=== PATIENT | male | born 1995 | race African-American/Black ===

== ENCOUNTER 2019-08-24 17:19 | Emergency (ER) | payer OTHER ==
[2019-08-24] MEDS ORDERED: HYDROmorphone 1 MG/ML CARPUJECT IVP STA (17:59)
--- NOTE | 2019-08-24 18:02 | ED Physician Documentation ---
History of Present Illness - Stated complaint Stated Complaint: BILAT ARM PAIN - Chief complaint Chief Complaint: Ext Problem - History obtained from History obtained from: Patient - History of Present Illness Timing: Prior to arrival, How many days ago (1) Pain level max: 10 Pain level now: 6 - Additonal information Additional information: 23-year-old male presents to the emergency department with chief complaint of left arm pain and bilateral arm pain. Patient reports that he was doing shoulder presses yesterday afternoon when he felt a pop in his left shoulder. He did not think much of it though it was painful. This morning he woke up and his left shoulder hurt and he has been unable to move his arms normally. His arms are held in flexion at the elbows bilaterally. He has taken nothing for pain. Has no history of previous injury. Review of Systems Constitutional: reports: Myalgias. denies: Fever, Chills, Weight Loss Nose: denies: Rhinorrhea / runny nose, Foreign Body Throat: denies: Dental pain / toothache, Oral lesions / sores Cardiac: denies: Chest pain / pressure, Palpitations Respiratory: denies: Dyspnea, Cough GI: denies: Abdominal Pain : denies: Dysuria Skin: denies: Rash, Lesions Musculoskeletal: reports: Extremity pain. denies: Joint swelling PD PAST MEDICAL HISTORY - Past Medical History Past Medical History: No - Past Surgical History Past Surgical History: No - Present Medications Home Medications: Ambulatory Orders Medication Instructions Recorded Confirmed Cyclobenzaprine [Flexeril] 10 mg PO BID #10 tablet 08/24/19 Ibuprofen [Motrin] 600 mg PO Q6H PRN #20 tab 08/24/19 - Allergies Allergies/Adverse Reactions: Allergies Allergy/AdvReac Type Severity Reaction Status Date / Time No Known Drug Allergies Allergy Verified 08/24/19 17:30 - Social History Does the pt smoke?: No Smoking Status: Never smoker Does the pt drink ETOH?: Yes Does the pt have substance abuse?: No - Immunizations Immunizations are current?: Yes - POLST Patient has POLST: No PD ED PE NORMAL - General General: Alert and oriented X 3, No acute distress, Well developed/nourished - HEENT HEENT: EOMI - Neck Neck: Supple, no meningeal sign, No adenopathy, Other (no pain with axial loading) - Cardiac Cardiac: RRR, No murmur (Bilateral arm helo in 40 degrees oif flexion at lebow. unable to extend fully. Able to laterally raise arms about shoulders bilaterally. No swelling/erythema) - Derm Derm: Normal color, Warm and dry, No rash - Extremities Extremities: Other (Bilateral arms help in slight flexion at elbow. 2+ radial pulse bialterally. 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 Eye Opening: Spontaneous Motor: Obeys Commands Verbal: Oriented GCS Score: 15 - Psych Psych: Normal mood Results - Vitals Vitals: Vital Signs - 24 hr 08/24/19 17:30 Temperature 37 C Heart Rate 74 Respiratory 18 Rate Blood Pressure 154/80 H O2 Saturation 97 Oxygen O2 Source Room air - Labs Labs: Laboratory Tests 08/24/19 18:34 Sodium 137 Potassium 3.7 Chloride 102 Carbon Dioxide 23 Anion Gap 12.0 BUN 11 Creatinine 0.8 Estimated GFR (MDRD) 147 Glucose 89 Calcium 9.6 Total Bilirubin 1.0 AST 32 ALT 28 Alkaline Phosphatase 67 Total Creatine Kinase 947 H Total Protein 7.3 Albumin 4.4 Globulin 2.9 Albumin/Globulin Ratio 1.5 Lipase 27 - Rads (name of study) left shoulder Radiology: Final report received (No acute osseous process. No fracture no dislocation.) PD MEDICAL DECISION MAKING - ED course Complexity details: reviewed results, re-evaluated patient, d/w patient ED course: 23-year-old male here with bilateral arm pain. Began yesterday after doing heavy shoulder lifts. On exam both arms are noted to maintain mild flexion at the elbow. - Shoulder x-ray was completed and showed no acute osseous process - Labs were reviewed evaluated and his CK is elevated at about 950. However he is making urine normally and has preserved renal function. This finding was discussed with the patient he is advised to maintain judicious hydration to prevent rhabdomyolysis.Patient will be advised to abstain from heavy lifting for at least 1 week. Prescribing Motrin and a limited number of muscle relaxers will also be completed. Pt has soft compartments and good pulses. no findings c/w compartment syndrome. Departure - Departure Disposition: 01 Home, Self Care Clinical Impression: Elevated CK, Bilateral arm pain Condition: Stable Instructions: ED Rhabdomyolysis Prescriptions: Cyclobenzaprine [Flexeril] 10 mg PO BID #10 tablet Ibuprofen [Motrin] 600 mg PO Q6H PRN #20 tab PRN Reason: Pain Comments: The x-ray of your shoulder is normal. Your labs show a mild CK elevation. We see this when the muscles have been damaged due to excessive working out or if they stay in spasm too long. Please make sure you drink a lot of water. Your goal should be to urinate every few hours with clear or light yellow urine. I have prescribed a limited number of ibuprofen for pain control. I have also prescribed a mild muscle relaxer. Please use this cautiously it may make you drowsy. If the pain is worsening you have arm swelling return immediately to the emergency department.
[2019-08-24] MEDS ORDERED: HYDROmorphone 1 MG/ML CARPUJECT IM STA (18:03)
--- NOTE | 2019-08-24 18:36 | XRAY Report ---
PROCEDURE: Shoulder 3 View LT INDICATIONS: pop in shoulder when working out TECHNIQUE: 4 views of the shoulder were acquired. COMPARISON: None. FINDINGS: Bones: No fractures or dislocations. No suspicious bony lesions. Visualized ribs appear intact. Soft tissues: No suspicious soft tissue calcifications. IMPRESSION: Intact left shoulder. Reviewed by: Jessika Chu MD on 08/24/2019 6:35 PM PDT Approved by: Jessika Chu MD on 08/24/2019 6:35 PM PDT Station ID: [id number]
[2019-08-24] MEDS ORDERED: KETOROLAC 30 MG/ML VIAL IM STA (18:53)
[2019-08-24 18:58] LABS: ALBUMIN 4.4 g/dL (3.2-5.5); ALBUMIN/GLOBULIN RATIO 1.5 (1.0-2.2); CALCIUM 9.6 mg/dL (8.5-10.3); CREATININE 0.8 mg/dL (0.6-1.2); TOTAL PROTEIN 7.3 g/dL (6.7-8.2)
[2019-08-24 19:55] VITALS: BP 124/70
== END 2019-08-24 19:56 | disposition home or self-care (01) ==
LOC: ED 17:19
DX: M79.601 Pain in right arm (principal); M79.602 Pain in left arm; X50.9XXA Other and unspecified overexertion or strenuous movements or postures, initial encounter; Y93.B9 Activity, other involving muscle strengthening exercises; R79.89 Other specified abnormal findings of blood chemistry
CPT/HCPCS: 36415; 73030; 80053; 82550; 83690; 96372; 99284; J1170

== ENCOUNTER 2021-09-05 08:00 | Outpatient (CLI) | payer OTHER ==
[2021-09-05 23:24] LABS: NEISSERIA GONORRHOEAE DNA NEGATIVE (NEGATIVE)
[2021-09-05 23:34] LABS: CHLAMYDIA TRACHOMATIS DNA POSITIVE (NEGATIVE)
== END 2021-09-05 23:59 | disposition home or self-care (01) ==
LOC: LAB.N 08:00
PROVIDERS: ATTEND Emergency Medicine
DX: R30.0 Dysuria (principal)
CPT/HCPCS: 87491; 87591; 87661

== ENCOUNTER 2022-02-04 08:00 | Outpatient (CLI) | payer OTHER ==
[2022-02-04 23:12] LABS: CHLAMYDIA TRACHOMATIS DNA NEGATIVE (NEGATIVE); NEISSERIA GONORRHOEAE DNA NEGATIVE (NEGATIVE)
[2022-02-06 06:09] LABS: HCV AB <0.1 s/co ratio (0.0-0.9)
[2022-02-06 08:10] LABS: RPR Non Reactive (Non Reactive)
[2022-02-06 09:09] LABS: HIV SCREEN 4TH GENERATION Non Reactive (Non Reactive)
== END 2022-02-04 23:59 | disposition home or self-care (01) ==
LOC: LAB.N 08:00
PROVIDERS: ATTEND Physician Assistant
DX: Z11.3 Encounter for screening for infections with a predominantly sexual mode of transmission (principal)
CPT/HCPCS: 86592; 86803; 87389; 87491; 87591; 87661

== ENCOUNTER 2022-04-26 16:45 | Outpatient (CLI) | payer OTHER ==
[2022-04-27 00:55] LABS: CHLAMYDIA TRACHOMATIS DNA NEGATIVE (NEGATIVE); NEISSERIA GONORRHOEAE DNA NEGATIVE (NEGATIVE)
== END 2022-04-26 23:59 | disposition home or self-care (01) ==
LOC: LAB.N 16:45
PROVIDERS: ATTEND Physician Assistant
DX: Z11.3 Encounter for screening for infections with a predominantly sexual mode of transmission (principal)
CPT/HCPCS: 87491; 87591; 87661

== ENCOUNTER 2022-08-09 12:00 | Outpatient (CLI) | payer OTHER ==
[2022-08-09 21:38] LABS: CHLAMYDIA TRACHOMATIS DNA NEGATIVE (NEGATIVE); TRICHOMONAS VAGINALIS DNA NEGATIVE (NEGATIVE)
[2022-08-09 21:39] LABS: NEISSERIA GONORRHOEAE DNA NEGATIVE (NEGATIVE)
[2022-08-10 06:10] LABS: HCV AB Non Reactive (Non Reactive); HIV SCREEN 4TH GENERATION Non Reactive (Non Reactive)
== END 2022-08-09 12:15 | disposition home or self-care (01) ==
LOC: LAB.N 12:00
PROVIDERS: ATTEND Physician Assistant
DX: Z11.3 Encounter for screening for infections with a predominantly sexual mode of transmission (principal)
CPT/HCPCS: 86803; 87389; 87491; 87591; 87661

== ENCOUNTER 2022-12-26 17:30 | Outpatient (CLI) | payer OTHER ==
[2022-12-27 13:19] LABS: CHLAMYDIA TRACHOMATIS DNA NEGATIVE (NEGATIVE); NEISSERIA GONORRHOEAE DNA NEGATIVE (NEGATIVE); TRICHOMONAS VAGINALIS DNA NEGATIVE (NEGATIVE)
[2022-12-28 06:09] LABS: HCV AB Non Reactive (Non Reactive); HSV 1 IGG TYPE SPEC <0.91 index (0.00-0.90); HSV 2 IGG TYPE SPEC 7.23 index (0.00-0.90)
[2022-12-28 07:08] LABS: RPR Non Reactive (Non Reactive)
[2022-12-28 08:10] LABS: HIV SCREEN 4TH GENERATION Non Reactive (Non Reactive)
== END 2022-12-26 17:45 | disposition home or self-care (01) ==
LOC: LAB.N 17:30
PROVIDERS: ATTEND Family Medicine
DX: Z11.3 Encounter for screening for infections with a predominantly sexual mode of transmission (principal)
CPT/HCPCS: 36415; 86592; 86695; 86696; 86803; 87389; 87491; 87591; 87661